=== PATIENT | female | born 1975 | race Caucasian/White ===

== ENCOUNTER 2024-02-23 14:30 | Emergency (ER) | payer MEDICAID ==
[~2024-02-23] VITALS: Ht 167.6 cm; Wt 82.0 kg
[2024-02-23 14:48] VITALS: O2SAT 98
[2024-02-23 15:45] VITALS: BP 133/70; PULSE 79; RESP 20; TEMP 98.2
== END 2024-02-23 17:24 | disposition home or self-care (01) ==
LOC: ER 14:42
DX: S91.311A Laceration without foreign body, right foot, initial encounter (principal); I10 Essential (primary) hypertension; Z90.49 Acquired absence of other specified parts of digestive tract; W26.0XXA Contact with knife, initial encounter; Y93.89 Activity, other specified; Y92.89 Other specified places as the place of occurrence of the external cause; Y99.8 Other external cause status
CPT/HCPCS: 12002; 99282; Z7610 ×3